=== PATIENT | female | born 1985 | race Two or more races ===

== ENCOUNTER 2017-01-31 09:01 | Emergency (ER) | payer OTHER ==
[~2017-01-31] VITALS: Ht 162.6 cm; Wt 87.5 kg
[2017-01-31 12:37] LABS: BASOPHIL % 0.4 % (0-2); PLATELET COUNT 159 x10^3mcL (130-400); RED CELL DISTRIBUTION WIDTH 14.3 % (11.5-14.5)
[2017-01-31 14:27] VITALS: BP 117/68
== END 2017-01-31 14:28 | disposition home or self-care (01) ==
LOC: ED 09:01
PROVIDERS: Emergency Medicine
DX: O20.0 Threatened abortion (principal); Z79.899 Other long term (current) drug therapy; Z3A.01 Less than 8 weeks gestation of pregnancy

== ENCOUNTER 2017-09-02 22:51 | Emergency (ER) | payer OTHER ==
[2017-09-03 02:40] LABS: CALCIUM 8.6 mg/dL (8.5-10.1); CARBON DIOXIDE 30.4 mmol/L (21-32); CHLORIDE SERUM 104 mmol/L (98-107); CREATININE SERUM 0.7 mg/dL (0.6-1.0); GFR1 > 60 mL/min; GLUCOSE SERUM 97 mg/dL (74-106); POTASSIUM SERUM 3.5 mmol/L (3.5-5.1); SODIUM SERUM 141 mmol/L (136-145)
[2017-09-03 02:44] LABS: ALBUMIN 3.9 g/dL (3.4-5.0); ALKALINE PHOSPHATASE 88 U/L (46-116); ALT/SGPT 29 U/L (14-59); AMYLASE 69 U/L (25-115); AST/SGOT 12 U/L (15-37); BILIRUBIN TOTAL 0.37 mg/dL (0.20-1.00); LIPASE 156 IU/L (73-393); TOTAL PROTEIN, SERUM 7.9 g/dL (6.4-8.2)
[2017-09-03 02:59] LABS: BASOPHIL % 2.3 % (0-2); PLATELET COUNT 190 x10^3mcL (130-400); RED CELL DISTRIBUTION WIDTH 15.1 % (11.5-14.5)
[2017-09-03 04:54] VITALS: BP 116/69
== END 2017-09-03 04:54 | disposition home or self-care (01) ==
LOC: ED 22:51
PROVIDERS: Emergency Medicine
DX: K80.20 Calculus of gallbladder without cholecystitis without obstruction (principal)
CPT/HCPCS: 83880; J1885; Q0092

== ENCOUNTER 2018-08-25 16:20 | Emergency (ER) | payer OTHER ==
[~2018-08-25] VITALS: Ht 162.6 cm; Wt 94.4 kg
[2018-08-25 16:48] VITALS: Ht 162.6 cm; Wt 94.4 kg
[2018-08-25 17:37] LABS: BASOPHIL % 0.3 % (0-2); PLATELET COUNT 197 x10^3mcL (130-400); RED CELL DISTRIBUTION WIDTH 16.9 % (11.5-14.5)
[2018-08-25 17:44] LABS: CALCIUM 8.3 mg/dL (8.5-10.1); CARBON DIOXIDE 26.1 mmol/L (21-32); CHLORIDE SERUM 104 mmol/L (98-107); CREATININE SERUM 0.9 mg/dL (0.6-1.0); GFR1 > 60 mL/min; GLUCOSE SERUM 93 mg/dL (74-106); POTASSIUM SERUM 3.7 mmol/L (3.5-5.1); SODIUM SERUM 137 mmol/L (136-145)
[2018-08-25 17:49] LABS: ALBUMIN 3.6 g/dL (3.4-5.0); ALKALINE PHOSPHATASE 107 U/L (46-116); ALT/SGPT 32 U/L (14-59); AST/SGOT 10 U/L (15-37); BILIRUBIN TOTAL 0.3 mg/dL (0.20-1.00); LIPASE 148 IU/L (73-393); TOTAL PROTEIN, SERUM 7.7 g/dL (6.4-8.2)
[2018-08-25 19:50] VITALS: BP 127/76
== END 2018-08-25 19:50 | disposition home or self-care (01) ==
LOC: ED 16:20
PROVIDERS: Emergency Medicine
DX: K29.70 Gastritis, unspecified, without bleeding (principal); Z98.890 Other specified postprocedural states
CPT/HCPCS: J2270; J2405; J7030; Q0092

== ENCOUNTER 2019-03-06 02:27 | Emergency (ER) | payer OTHER ==
[~2019-03-06] VITALS: Ht 162.6 cm; Wt 94.3 kg
[2019-03-06 02:31] VITALS: Ht 162.6 cm; Wt 94.3 kg
[2019-03-06 03:13] LABS: microscopic required? NO
[2019-03-06 03:21] LABS: urine erythrocyte NEGATIVE (NEGATIVE)
[2019-03-06 04:13] VITALS: BP 121/69
== END 2019-03-06 04:13 | disposition home or self-care (01) ==
LOC: ED 02:27
PROVIDERS: Emergency Medicine
DX: R11.2 Nausea with vomiting, unspecified (principal); R19.7 Diarrhea, unspecified; R10.13 Epigastric pain; R10.10 Upper abdominal pain, unspecified
CPT/HCPCS: J0500; Q0162

== ENCOUNTER 2019-08-26 08:33 | Emergency (ER) | payer OTHER ==
[~2019-08-26] VITALS: Ht 162.6 cm; Wt 97.1 kg
[2019-08-26 08:40] VITALS: Ht 162.6 cm; Wt 97.1 kg
[2019-08-26 10:25] VITALS: BP 120/85
== END 2019-08-26 10:25 | disposition home or self-care (01) ==
LOC: ED 08:33
DX: L02.01 Cutaneous abscess of face (principal)

== ENCOUNTER 2020-04-28 13:10 | Emergency (ER) | payer OTHER, SELFPAY ==
[~2020-04-28] VITALS: Ht 162.6 cm; Wt 92.1 kg
[2020-04-28 13:19] VITALS: Ht 162.6 cm; Wt 92.1 kg
[2020-04-28 14:27] VITALS: BP 128/75
== END 2020-04-28 14:27 | disposition home or self-care (01) ==
LOC: ED 13:10
DX: U07.1 COVID-19 (principal); O99.512 Diseases of the respiratory system complicating pregnancy, second trimester; Z3A.20 20 weeks gestation of pregnancy; Z98.890 Other specified postprocedural states
CPT/HCPCS: U0003-CS